=== PATIENT | male | born 1980 | race Caucasian/White ===

== ENCOUNTER 2018-05-14 00:27 | Emergency (ER) | payer SELFPAY ==
[2018-05-14 00:46] VITALS: Ht 172.7 cm
[2018-05-14 01:11] VITALS: BP 141/90
== END 2018-05-14 01:11 | disposition home or self-care (01) ==
LOC: ED 00:27
DX: S50.362A Insect bite (nonvenomous) of left elbow, initial encounter (principal); S50.361A Insect bite (nonvenomous) of right elbow, initial encounter; W57.XXXA Bitten or stung by nonvenomous insect and other nonvenomous arthropods, initial encounter; Y93.89 Activity, other specified; Y92.89 Other specified places as the place of occurrence of the external cause; Y99.8 Other external cause status